=== PATIENT | male | born 1980 | race Caucasian/White ===

== ENCOUNTER 2017-04-28 07:20 | Emergency (ER) | payer BC, OTHER ==
[2017-04-28] MEDS ORDERED: MOTRIN 600 MG ONE (07:33)
[2017-04-28] MEDS: MOTRIN 600 MG PO ONE (07:34)
--- NOTE | 2017-04-28 07:35 | ERPHSYRPT ---
- History of Present Illness Time Seen by Provider: 04/28/17 07:26 Source: patient, family () Physician History: CC: right hand pain Hx: 36 y/o patient was working at [email or web address]. He has had right hand pain since 6AM. 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 He has rather severe pain in the right hand at the 3rd, 4th MCP. Denies punching or striking object. No other injuries. Pain is aching and worse with movement or touch. ALL: None Meds: None Occurred: this morning Extremities Pain Location: hand: right Allergies/Adverse Reactions: No Known Drug Allergies Allergy (Unverified 04/28/17 07:46) Home Medications: No Reportable Medications [No Reported Medications] 04/28/17 [History] - Review of Systems Constitutional: No Symptoms Musculoskeletal: Injury, Joint Pain (right hand) Skin: No Skin Lesions Neurological: No Focal Weakness, No Parasthesia - Past Medical History Pertinent Past Medical History: No Other Medical History: Wears hearing aids - Social History Patient Lives Alone: No (here with , works [email or web address]) - Nursing Vital Signs Nursing Vital Signs: Initial Vital Signs Temperature 98.7 F 04/28/17 07:30 Pulse Rate 97 H 04/28/17 07:30 Respiratory Rate 16 04/28/17 07:30 Blood Pressure 141/65 04/28/17 07:30 O2 Sat by Pulse Oximetry 99 04/28/17 07:30 Pain Scale Pain Intensity 4 - Physical Exam General Appearance: alert, thin, other (pleasant man) Eyes, Ears, Nose, Throat Exam: moist mucous membranes Neck Exam: normal inspection, non-tender, supple Cardiovascular/Respiratory Exam: normal breath sounds, regular rate/rhythm Shoulder Exam: non-tender, no evidence of injury Elbow/Forearm Exam: non-tender, no evidence of injury Wrist Exam: non-tender, no evidence of injury Hand Exam: bone tenderness (3,4 MCP tender with swelling), limited ROM, No laceration Neuro/Tendon Exam: normal sensation, normal motor functions Mental Status Exam: alert, oriented x 3, cooperative Skin Exam: warm, dry, No rash Procedures - Splinting Location of Splint: Right, Hand Splint Applied By: ED Physician Pre-Proc Neuro Vasc Exam: normal Post-Proc Neuro Vasc Exam: neurovascular intact Progress: soft metacarpal wrap applied using cast padding and lisbeth wrap - Course Nursing assessment & vital signs reviewed: Yes - Radiology Exams right hand X-ray Interpretation: Reviewed by me, No Fracture Ordered Tests: Active Orders 24 hr Category Date Time Status Cold Application STAT Care 04/28/17 07:29 Active Splint STAT Care 04/28/17 08:00 Active HAND (MINIMUM 3 VIEWS) Stat Exams 04/28/17 07:29 Taken Medication Summary Discontinued Medications Generic Name Dose Route Start Last Admin Trade Name Latonia PRN Reason Stop Dose Admin Ibuprofen 600 mg 04/28/17 07:29 04/28/17 07:34 Motrin 600 Mg PO 04/28/17 07:30 600 mg STAT ONE Administration Ibuprofen Confirm 04/28/17 07:33 Motrin 600 Mg Administered 04/28/17 07:34 Dose 600 mg .ROUTE .STK-MED ONE - Progress Progress Note: 04/28/17 08:24 He is not sure this is worker related. Advised ibuprofen, ice, splint, light duty. He plans to follow up at [facility]. Counseled pt/family regarding: diagnosis, need for follow-up, rad results - Departure Time of Disposition: 08:24 Departure Disposition: Home Clinical Impression: Contusion of right hand Qualifiers: Encounter type: initial encounter Qualified Code(s): S60.221A - Contusion of right hand, initial encounter Condition: Stable Critical Care Time: No Referrals: SCOTT FERNANDEZ MD [NON-STAFF PHY W/O PRIVILEGES] - Instructions: Contusion (DC) Additional Instructions: Ibuprofen as directed. Splint. Ice, rest, elevate. Light duty work with no use of right hand for 2 days. Follow up at [facility].
[2017-04-28 07:46] VITALS: O2SAT 99
[2017-04-28 08:50] VITALS: BP 128/72; PULSE 91
--- NOTE | 2017-04-28 09:02 | XRAY ---
Indication: Fourth/fifth finger pain following injury. Comparison: None 3 views of the right hand obtained. No bony, articular, or soft tissue abnormalities.
== END 2017-04-28 08:50 | disposition home or self-care (01) ==
LOC: ED 07:20
DX: S60.221A Contusion of right hand, initial encounter (principal); X50.3XXA Overexertion from repetitive movements, initial encounter; X50.0XXA Overexertion from strenuous movement or load, initial encounter; Y93.89 Activity, other specified; Y92.29 Other specified public building as the place of occurrence of the external cause; M79.641 Pain in right hand
CPT/HCPCS: 73130; 99283; A9270-GY